=== PATIENT | female | born 1960 | race Caucasian/White ===

== ENCOUNTER 2021-03-25 10:13 | Outpatient (CLI) | payer OTHER, SELFPAY ==
--- NOTE | ~2021-03-25 | MM_ITS ---
EXAMINATION: MM screening colette BI w evan HISTORY: Screening TECHNIQUE: Craniocaudal and mediolateral oblique 3-D tomosynthesis images were obtained and synthetic 2-D images were generated. CAD analysis was submitted and interpreted. COMPARISON: No prior mammogram is available for comparison at this institution. BREAST PARENCHYMAL COMPOSITION: The breasts are heterogenously dense, which may obscure small masses FINDINGS: There is no evidence of suspicious mass, calcification, or architectural distortion to sugg est malignancy in either breast. There has been no suspicious interval change. IMPRESSION: 1. No mammographic evidence of malignancy. 2. Recommend routine screening mammography in one year. BI-RADS Category 1: Negative Reviewed, dictated and finalized at location B.
== END 2021-03-25 10:14 | disposition home or self-care (01) ==
LOC: ANHIMG 10:21
PROVIDERS: PCP Family Medicine; Visit Provider Family Medicine
DX: Z12.31 Encounter for screening mammogram for malignant neoplasm of breast (principal)
CPT/HCPCS: 77063; 77067

== ENCOUNTER 2021-10-07 01:32 | Day surgery (SDC) | payer OTHER, SELFPAY ==
[2021-09-21 14:09] VITALS: BMI 24.0
[2021-10-07 12:43] VITALS: BP 138/80; PULSE 59; RESP 19; TEMP 36.2; O2SAT 100
[2021-10-07] MEDS: LACTATED RINGERS 1,000 ML 150 ML IV CONT (12:56)
--- NOTE | 2021-10-07 13:03 | WPDANESEPPF ---
Anes - Initial Pre Proc Eval Procedure: Operation Date: 10/07/21 13:45 Proposed Procedures p Esophagogastroduodenoscopy & Colonoscopy - Marcos Ballard MD Date/Time: 10/07/21 13:03 Surgeon: Marcos Ballard MD Pre Op Diagnosis: Dysphagia, GERD, Rectal Bleed Patient Data Age: 61 Gender: F Height: 1.52 m Weight: 54.9 kg Last Vital Signs Temp 36.2 C L 10/07/21 12:43 Pulse 59 L 10/07/21 12:43 Resp 19 10/07/21 12:43 BP 138/80 10/07/21 12:43 Pulse Ox 100 10/07/21 12:43 Allergies Allergy/AdvReac Type Severity Reaction Status Date / Time codeine Allergy Mild Unknown Verified 10/07/21 12:42 iodine Allergy Mild Muscle Pain Verified 10/07/21 12:42 Vpkybww-SXP-HaN Reductase Allergy Mild Unknown Verified 10/07/21 12:42 Inhibitor [Jiiazmx-Wbk-Eea Reductase Inhibitor] Home Medications Medication Instructions Recorded Confirmed Type pantoprazole 40 mg tablet,delayed 40 mg PO QAM 07/27/20 09/21/21 History release calcium carbonate 200 mg calcium 200 mg PO .prn PRN tablet 08/18/21 09/21/21 History (500 mg) chewable tablet famotidine 20 mg tablet 20 mg PO DAILY 08/18/21 09/21/21 History multivitamin 1 tablet PO DAILY 08/18/21 09/21/21 History sertraline 25 mg PO DAILY 09/21/21 09/21/21 History Patient hx anesthesia problems: none Family hx anesthesia problems: none Results Review: All pre-operative results and documents have been reviewed as part of the pre-operative evaluation. [facility] Past Medical History Medical History (Updated 10/07/21 @ 13:04 by Gonzalez Clemente MD) Acid reflux Anxiety Encounter for screening colonoscopy History of gluten sensitivity Hyperlipemia Social History Social History Smoking status: Never smoker Alcohol intake: never Substance use type: does not use Living arrangements: with family Spiritual care concerns: No Anes - Eval Final PreProcedure Day of Procedure 10/07/21 13:03 Patient weight: normal Heart: regular rate and rhythm Lungs: clear to auscultation Airway: Mallampati scale class II Neurological: alert and oriented Last oral intake: >/= 8 hours ASA classification: II Emergent: no Anesthetic plan: proceed Anesthesia type and monitoring: general GIVS and standard monitoring Results Review: All pre-operative results and documents have been reviewed as part of the pre-operative evaluation. Informed Consent: The patient's anesthetic plan and its attendant risks and benefits were discussed with the patient/family/POA. Questions were solicited and answers provided to the satisfaction of the patient/family/POA.
--- NOTE | 2021-10-07 13:38 | PM.HPGS ---
History of Present Illness History of Present Illness Consent: Risks, benefits, and alternatives have been discussed and questions answered. Patient agrees to proceed with procedure. Chief complaint: Dysphagia, GERD, Rectal Bleed Narrative: Marlyn Sy is a 61 year old female with gerd on ppi for years, last egd early 2009, colonoscopy 2012 with polyp, lately with intermittent dysphagia. Review of Systems Constitutional: Constitutional: Denies headache(s) and Denies weakness Eyes: Eyes: Denies blurry vision ENT: Reports Normal hearing present, Denies headache(s) and Denies neck pain Cardiovascular: Cardiovascular: Denies chest pain and Denies dyspnea Respiratory: Respiratory: Denies dyspnea Gastrointestinal: Gastrointestinal: Reports no additional gastrointestinal complaints Genitourinary: Genitourinary: Denies dysuria Musculoskeletal: Musculoskeletal: Denies neck pain Integumentary/Breasts: Skin/Breast: Denies dry skin Neurologic: Reports Normal hearing present, Denies headache(s) and Denies weakness Psychiatric: Psychiatric: Denies anxiety Endocrine: Endocrine: Denies change in body appearance Hematologic/Lymphatic: Hematologic/Lymphatic: Denies easy bleeding Allergic/Immunologic: Allergic/Immunologic: Denies urticaria PMFSH Past Medical History Medical History (Updated 10/07/21 @ 13:38 by Marcos Ballard MD) Acid reflux Anxiety Encounter for screening colonoscopy History of gluten sensitivity Hyperlipemia Social History Social History Smoking status: Never smoker Alcohol intake: never Substance use type: does not use Living arrangements: with family Spiritual care concerns: No Meds Home Medications and Allergies Home Medications Medication Instructions Recorded Confirmed Type pantoprazole 40 mg tablet,delayed 40 mg PO QAM 07/27/20 09/21/21 History release calcium carbonate 200 mg calcium 200 mg PO .prn PRN tablet 08/18/21 09/21/21 History (500 mg) chewable tablet famotidine 20 mg tablet 20 mg PO DAILY 08/18/21 09/21/21 History multivitamin 1 tablet PO DAILY 08/18/21 09/21/21 History sertraline 25 mg PO DAILY 09/21/21 09/21/21 History Allergies Allergy/AdvReac Type Severity Reaction Status Date / Time codeine Allergy Mild Unknown Verified 10/07/21 12:42 iodine Allergy Mild Muscle Pain Verified 10/07/21 12:42 Mouksab-NKQ-XpU Reductase Allergy Mild Unknown Verified 10/07/21 12:42 Inhibitor [Vjyqhjy-Zhg-Pei Reductase Inhibitor] Vital Signs Vital Signs - 24 hr 10/07/21 12:43 Temperature 97.2 F L Pulse Rate 59 L Respiratory Rate 19 Blood Pressure 138/80 Pulse Oximetry 100 Exam Const: General: comfortable and no acute distress HENMT: General nose exam: Normal nares present Eyes: General: appearance normal, both eyes and all related structures Neck: Neck: no JVD Resp: Auscultation: clear to auscultation bilaterally Cardio: Rate: regular rate Rhythm: regular rhythm GI: Inspection: non-distended GI Palp: Yes Soft to palpation Skin: General skin exam: normal color Neuro: General: gait normal Speech: normal speech Extrem: General: normal to inspection Psych: Mental Status: mental status grossly normal Assessment and Plan Assessment and plan (1) Acid reflux: Code(s): K21.9 - Gastro-esophageal reflux disease without esophagitis Status: Acute Assessment and Plan: gerd with bx, on ppi (2) Encounter for screening colonoscopy: Code(s): Z12.11 - Encounter for screening for malignant neoplasm of colon Status: Acute Assessment and Plan: colonoscopy
--- NOTE | 2021-10-07 13:50 | SUR.OPER ---
EGD ended at 1344. Colonoscopy began at 1350.
[2021-10-07 14:02] VITALS: BP 106/67; PULSE 59; RESP 19; O2SAT 100
[2021-10-07 14:12] VITALS: BP 123/74; PULSE 56; RESP 15; O2SAT 95
[2021-10-07 14:22] VITALS: BP 138/79; PULSE 49; RESP 18; O2SAT 100
== END 2021-10-07 14:33 | disposition home or self-care (01) ==
PROVIDERS: PCP Family Medicine; Visit Provider Internal Medicine Gastroenterology
PROC: 0DJ08ZZ Inspection of Upper Intestinal Tract, Via Natural or Artificial Opening Endoscopic (ICD-10-PCS; CPT 43235; principal; 2021-10-07 13:45)
DX: K62.5 Hemorrhage of anus and rectum (principal); K57.30 Diverticulosis of large intestine without perforation or abscess without bleeding; K21.9 Gastro-esophageal reflux disease without esophagitis; K90.41 Non-celiac gluten sensitivity; K64.8 Other hemorrhoids; E78.5 Hyperlipidemia, unspecified; F41.9 Anxiety disorder, unspecified
CPT/HCPCS: 45378; 43239; 88305; J2704; J7120

== ENCOUNTER 2022-02-08 22:46 | Emergency (ER) | payer OTHER, SELFPAY ==
[2022-02-08 22:50] VITALS: BP 148/99; PULSE 60; RESP 16; TEMP 36.6; O2SAT 100
[2022-02-09] MEDS: CEPHALEXIN 500 MG CAPSULE PO (00:17)
[2022-02-09] MEDS: FAMOTIDINE 20 MG TABLET 40 MG PO (00:17)
--- NOTE | 2022-02-09 00:28 | ED.WOUNDLAC ---
HPI - Wound/Laceration General Chief Complaint: Wound/Laceration Stated Complaint: insect bite Time Seen by Provider: 02/08/22 23:48 History of Present Illness HPI narrative: This is a 61-year-old female with past medical history of GERD, who presents to the emergency department complaining of pain and swelling of the right thumb and wrist after being stung by a wasp yesterday. Patient states he was working in the garden when she was stung by a wasp, she had additional swelling, managed with home Benadryl with initial improvement then worsening. She states her pain was approximately 4 out of 10, to the right thumb and right wrist. She also complains of mild tenderness of the right bicep. She states she took increased dose of Benadryl today with some resulting tiredness. Related Data Home Medications Medication Instructions Recorded Confirmed pantoprazole 40 mg tablet,delayed 40 mg PO QAM 07/27/20 09/21/21 release calcium carbonate 200 mg calcium 200 mg PO .prn PRN Acid Reflux 08/18/21 09/21/21 (500 mg) chewable tablet (Tums) famotidine 20 mg tablet 20 mg PO DAILY 08/18/21 09/21/21 multivitamin (Daily Multi-Vitamin 1 tablet PO DAILY 08/18/21 09/21/21 tablet) sertraline 25 mg tablet 25 mg PO DAILY 09/21/21 09/21/21 Allergies Allergy/AdvReac Type Severity Reaction Status Date / Time codeine Allergy Mild Unknown Verified 10/07/21 12:42 iodine Allergy Mild Muscle Pain Verified 10/07/21 12:42 Xhxvtsm-WVS-JuY Reductase Allergy Mild Unknown Verified 10/07/21 12:42 Inhibitor [Gyuisef-Elm-Abt Reductase Inhibitor] Review of Systems Review of Systems: CONSTITUTIONAL: Denies fever, chills, or sweats. EYES: Denies visual changes, redness, or discharge. ENT: Denies rhinorrhea, congestion, sore throat, or otalgia. CARDIOVASCULAR: Denies chest pain, palpitations, or edema. RESPIRATORY: Denies cough or dyspnea. GASTROINTESTINAL: Denies abdominal pain, nausea, vomiting, or diarrhea. GENITOURINARY: Denies dysuria or hematuria. SKIN: Rash and swelling of the right thumb and wrist MUSCULOSKELETAL: Right arm tenderness denies back pain, joint pain, or myalgia. NEUROLOGIC: Denies headache, numbness, dizziness, or weakness. PSYCHIATRIC: Denies anxiety or depression. [facility] Past Medical History Medical History (Updated 02/09/22 @ 00:33 by Jaguar Morales MD) Acid reflux Anxiety Encounter for screening colonoscopy History of gluten sensitivity Hyperlipemia Social History Social History Smoking status: Never smoker Alcohol intake: never Substance use type: does not use Spiritual care concerns: No Exam Narrative: GENERAL: Well-appearing, well-nourished, and in no acute distress. HEAD: Normocephalic, atraumatic. EYES: PERRLA and EOMI. ENT: Nares clear, no rhinorrhea or epistaxis. Mucous membranes moist. Oropharynx without tonsillar hypertrophy exudate or other lesions. NECK: Supple. No adenopathy or masses. No carotid bruits or JVD. No stridor CHEST: Clear to auscultation. No respiratory distress. No wheezes rales or rhonchi HEART: Regular rate and rhythm. No murmur heard. Normal peripheral pulses. ABDOMEN: Soft, nontender, nondistended, normal active bowel sounds. EXTREMITIES: Mild swelling and erythema noted of the palmar aspect of the right thumb and anterolateral aspect of the right wrist. Range of motion of the fingers and the wrist is intact without significant tenderness, normal range of motion. No noted lymphadenopathy, no other edema. SKIN: Warm, dry, no rash. NEURO: No focal deficits. Alert and oriented x3. Strength 5/5 in all extremities, sensation intact in all extremities PSYCH: Normal mood and affect. Course Course Emergency Course: :22 - Patient given oral Pepcid and initial dose of antibiotics. After observation in the emergency department there is no additional noted swelling or spreading erythema and the patient fe
[2022-02-09] MEDS: ACETAMINOPHEN 500 MG TABLET 1000 MG PO (00:40)
[2022-02-09 01:26] VITALS: BP 147/88; PULSE 61; RESP 16; O2SAT 100
== END 2022-02-09 01:27 | disposition home or self-care (01) ==
PROVIDERS: Emergency Provider Preventive Medicine Aerospace Medicine; PCP Family Medicine
DX: T63.461A Toxic effect of venom of wasps, accidental (unintentional), initial encounter (principal); L03.011 Cellulitis of right finger; L03.113 Cellulitis of right upper limb; E78.5 Hyperlipidemia, unspecified; K21.9 Gastro-esophageal reflux disease without esophagitis; F41.9 Anxiety disorder, unspecified; K90.41 Non-celiac gluten sensitivity
CPT/HCPCS: 90471; 99283; A9270

== ENCOUNTER 2022-08-15 01:16 | Day surgery (SDC) | payer OTHER, SELFPAY ==
[2022-08-07 11:30] VITALS: BMI 22.2
[2022-08-15 09:58] VITALS: BP 120/56; PULSE 63; RESP 16; TEMP 36.5; O2SAT 100; BMI 21.9
[2022-08-15] MEDS: LACTATED RINGERS 1,000 ML 150 ML IV CONT (10:08)
--- NOTE | 2022-08-15 10:17 | WPDANESEPPF ---
Anes - Initial Pre Proc Eval Procedure: Operation Date: 08/15/22 11:15 Proposed Procedures p Esophagogastroduodenoscopy - Marcos Ballard MD Date/Time: 08/15/22 10:17 Surgeon: Marcos Ballard MD Pre Op Diagnosis: GERD Patient Data Age: 61 Gender: F Height: 1.6 m Weight: 56.1 kg Last Vital Signs Temp 97.7 F 08/15/22 09:58 Pulse 63 08/15/22 09:58 Resp 16 08/15/22 09:58 BP 120/56 L 08/15/22 09:58 Pulse Ox 100 08/15/22 09:58 O2 Del Method Room Air 08/15/22 09:58 Allergies Allergy/AdvReac Type Severity Reaction Status Date / Time codeine Allergy Mild Unknown Verified 08/15/22 09:57 iodine Allergy Mild Muscle Pain Verified 08/15/22 09:57 Zlypydj-MMY-JzM Reductase Allergy Mild Unknown Verified 08/15/22 09:57 Inhibitor [Xybdkqg-Suj-Jsi Reductase Inhibitor] Home Medications Medication Instructions Recorded Confirmed Type pantoprazole 40 mg tablet,delayed 40 mg PO QAM 07/27/20 08/15/22 History release calcium carbonate 200 mg calcium 200 mg PO .prn PRN Acid Reflux 08/18/21 08/15/22 History (500 mg) chewable tablet (Tums) multivitamin (Daily Multi-Vitamin 1 tablet PO DAILY 08/18/21 08/15/22 History tablet) sertraline 25 mg tablet 25 mg PO DAILY 09/21/21 08/15/22 History sertraline 25 mg tablet 37.5 mg PO DAILY 05/02/22 08/15/22 History metronidazole 500 mg tablet 500 mg PO Q12H #14 tabs 05/04/22 08/15/22 Rx estradiol 10 mcg vaginal tablet 10 mcg vaginal 2XW #30 tabs 06/06/22 08/15/22 Rx (Vagifem) Patient hx anesthesia problems: none Family hx anesthesia problems: none Results Review: All pre-operative results and documents have been reviewed as part of the pre-operative evaluation. [facility] Past Medical History Medical History Acid reflux Anxiety Encounter for screening colonoscopy History of gluten sensitivity Hyperlipemia Vaginitis Surgical History Surgical History History of spinal surgery History of tonsillectomy Family History Family History Mother Hypertension Cerebrovascular accident Crohn's disease Father Hypertension Franklin's esophagus Leukemia Social History Social History Smoking status: Never smoker Alcohol intake: current Alcohol use details: wine with dinner Substance use: never Substance use type: does not use Living arrangements: with family Occupation/Education: retired Gender identity (if verbalized by the patient): Female Sexual Orientation (if Verbalized by the Patient): Straight or Heterosexual Spiritual care concerns: No Anes - Eval Final PreProcedure Day of Procedure 08/15/22 10:17 Patient weight: normal Heart: regular rate and rhythm Lungs: clear to auscultation Airway: Mallampati scale class II Neurological: alert and oriented Last oral intake: >/= 8 hours ASA classification: II Emergent: no Anesthetic plan: proceed Anesthesia type and monitoring: general GIVS and standard monitoring Results Review: All pre-operative results and documents have been reviewed as part of the pre-operative evaluation. Informed Consent: The patient's anesthetic plan and its attendant risks and benefits were discussed with the patient/family/POA. Questions were solicited and answers provided to the satisfaction of the patient/family/POA.
--- NOTE | 2022-08-15 11:04 | PM.HPGS ---
History of Present Illness History of Present Illness Consent: Risks, benefits, and alternatives have been discussed and questions answered. Patient agrees to proceed with procedure. Chief complaint: GERD Narrative: Marlyn Sy is a 61 year old female with more gerd symptoms now on protonix, had egd last year that was unremarkable Review of Systems Constitutional: Constitutional: Denies headache(s) and Denies weakness Eyes: Eyes: Denies blurry vision ENT: Reports Normal hearing present, Denies headache(s) and Denies neck pain Cardiovascular: Cardiovascular: Denies chest pain and Denies dyspnea Respiratory: Respiratory: Denies dyspnea Gastrointestinal: Gastrointestinal: Reports no additional gastrointestinal complaints Genitourinary: Genitourinary: Denies dysuria Musculoskeletal: Musculoskeletal: Denies neck pain Integumentary/Breasts: Skin/Breast: Denies dry skin Neurologic: Reports Normal hearing present, Denies headache(s) and Denies weakness Psychiatric: Psychiatric: Denies anxiety Endocrine: Endocrine: Denies change in body appearance Hematologic/Lymphatic: Hematologic/Lymphatic: Denies easy bleeding Allergic/Immunologic: Allergic/Immunologic: Denies urticaria PMFSH Past Medical History Medical History Acid reflux Anxiety Encounter for screening colonoscopy History of gluten sensitivity Hyperlipemia Vaginitis Surgical History Surgical History History of spinal surgery History of tonsillectomy Family History Family History Mother Hypertension Cerebrovascular accident Crohn's disease Father Hypertension Franklin's esophagus Leukemia Social History Social History Smoking status: Never smoker Alcohol intake: current Alcohol use details: wine with dinner Substance use: never Substance use type: does not use Living arrangements: with family Occupation/Education: retired Gender identity (if verbalized by the patient): Female Sexual Orientation (if Verbalized by the Patient): Straight or Heterosexual Spiritual care concerns: No Meds Home Medications and Allergies Home Medications Medication Instructions Recorded Confirmed Type pantoprazole 40 mg tablet,delayed 40 mg PO QAM 07/27/20 08/15/22 History release calcium carbonate 200 mg calcium 200 mg PO .prn PRN Acid Reflux 08/18/21 08/15/22 History (500 mg) chewable tablet (Tums) multivitamin (Daily Multi-Vitamin 1 tablet PO DAILY 08/18/21 08/15/22 History tablet) sertraline 25 mg tablet 25 mg PO DAILY 09/21/21 08/15/22 History sertraline 25 mg tablet 37.5 mg PO DAILY 05/02/22 08/15/22 History metronidazole 500 mg tablet 500 mg PO Q12H #14 tabs 05/04/22 08/15/22 Rx estradiol 10 mcg vaginal tablet 10 mcg vaginal 2XW #30 tabs 06/06/22 08/15/22 Rx (Vagifem) Allergies Allergy/AdvReac Type Severity Reaction Status Date / Time codeine Allergy Mild Unknown Verified 08/15/22 09:57 iodine Allergy Mild Muscle Pain Verified 08/15/22 09:57 Dbvpeog-RNU-UtI Reductase Allergy Mild Unknown Verified 08/15/22 09:57 Inhibitor [Irmksbs-Fkd-Rnh Reductase Inhibitor] Vital Signs Vital Signs - 24 hr 08/15/22 09:58 Temperature 97.7 F Pulse Rate 63 Respiratory Rate 16 Blood Pressure 120/56 L Pulse Oximetry 100 Oxygen Delivery Room Air Exam Const: General: comfortable and no acute distress HENMT: Face/Nose/Sinus: Normal nares present Eyes: General: appearance normal, both eyes and all related structures Neck: Neck: no JVD Resp: Auscultation: clear to auscultation bilaterally Cardio: Rate: regular rate Rhythm: regular rhythm GI: Inspection: non-distended GI Palp: Yes Soft to palpation Skin: General skin exam: normal color Neuro: General: gait norm
[2022-08-15 11:14] VITALS: BP 96/49; PULSE 67; RESP 18; O2SAT 100
[2022-08-15 11:24] VITALS: BP 116/62; PULSE 58; RESP 19; O2SAT 100
[2022-08-15 11:34] VITALS: BP 131/68; PULSE 58; RESP 16; O2SAT 100
== END 2022-08-15 11:44 | disposition home or self-care (01) ==
PROVIDERS: PCP Family Medicine; Visit Provider Internal Medicine Gastroenterology
PROC: 0DJ08ZZ Inspection of Upper Intestinal Tract, Via Natural or Artificial Opening Endoscopic (ICD-10-PCS; CPT 43235; principal; 2022-08-15 11:15)
DX: K21.9 Gastro-esophageal reflux disease without esophagitis (principal); K90.41 Non-celiac gluten sensitivity; E78.5 Hyperlipidemia, unspecified; F41.9 Anxiety disorder, unspecified
CPT/HCPCS: 43239; 88305; J2704; J7120

== ENCOUNTER 2022-09-19 14:57 | Outpatient (CLI) | payer OTHER, SELFPAY ==
--- NOTE | ~2022-09-19 | MM_ITS ---
EXAMINATION: MM screening colette BI w evan HISTORY: Screening mammogram TECHNIQUE: Craniocaudal and mediolateral oblique 3-D tomosynthesis images were obtained and synthetic 2-D images were generated. CAD analysis was submitted and interpreted. COMPARISON: 03/25/2021 BREAST PARENCHYMAL COMPOSITION: The breasts are heterogeneously dense, which may obscure small masses . FINDINGS: No suspicious mass, calcification, or architectural distortion are identified in either jenaro ast to suggest malignancy. There has been no suspicious interval change. IMPRESSION: 1. No mammographic evidence of malignancy. 2. Recommend routine screening mammography in one year. BI-RADS Category 1: Negative Reviewed, dictated and finalized at location A.
== END 2022-09-19 14:58 | disposition home or self-care (01) ==
PROVIDERS: PCP Family Medicine; Visit Provider Family Medicine
DX: Z12.31 Encounter for screening mammogram for malignant neoplasm of breast (principal)
CPT/HCPCS: 77063; 77067

== ENCOUNTER 2023-11-26 10:00 | Outpatient (CLI) | payer OTHER, SELFPAY ==
--- NOTE | ~2023-11-26 | MM_ITS ---
EXAMINATION: MM screening colette BI w evan HISTORY: Screening mammogram TECHNIQUE: Craniocaudal and mediolateral oblique 3-D tomosynthesis images were obtained and synthetic 2-D images were generated. CAD analysis was submitted and interpreted. COMPARISON: 09/19/2022 and 03/25/2021 BREAST PARENCHYMAL COMPOSITION:Dense: The breasts are heterogeneously dense, which may obscure small masses. FINDINGS: Questionable more conspicuous focal architectural distortion in the slightly outer left jenaro ast on CC view. No suspicious mass or calcification are identified in either breast to suggest malign soraya. IMPRESSION: Possible more conspicuous focal architectural distortion at the left breast on CC view, as detailed a adonis. Spot compression view, and possibly ultrasound, recommended for further evaluation at this time . BI-RADS Category 0: Incomplete: Needs additional imaging evaluation. Reviewed, dictated and finalized at [facility]. IMPRESSION: Possible more conspicuous focal architectural distortion at the left breast on CC view, as detailed above. Spot compression view, and possibly ultrasound, rec ommended for further evaluation at this time. BI-RADS Category 0: Incomplete: Needs additional imaging evaluation.
== END 2023-11-26 10:01 | disposition home or self-care (01) ==
LOC: ANHIMG 10:02
PROVIDERS: PCP Internal Medicine; Visit Provider Student in an Organized Health Care Education/Training Program
DX: Z12.31 Encounter for screening mammogram for malignant neoplasm of breast (principal); R92.8 Other abnormal and inconclusive findings on diagnostic imaging of breast
CPT/HCPCS: 77063; 77067

== ENCOUNTER 2023-12-17 11:02 | Outpatient (CLI) | payer OTHER, SELFPAY ==
--- NOTE | ~2023-12-17 | MMUS_ITS ---
EXAMINATION: MM diagnostic colette LT w evan, US breast LT complete HISTORY: Possible architectural distortion of the left breast TECHNIQUE: Additional 3-D tomosynthesis images of the left breast were performed and synthetic 2-D im ages were generated. CAD analysis was submitted and interpreted. High resolution complete left breast ultrasound was performed. COMPARISON: Comparison to multiple prior studies sequentially, with oldest reviewed study dated 03/05. BREAST PARENCHYMAL COMPOSITION: Dense: The breasts are heterogeneously dense, which may obscure small masses FINDINGS: MAMMOGRAPHIC FINDINGS: The asymmetry/architectural distortion is less apparent with spot compression views, likely superimpo sed fibroglandular content. No discrete mass or suspicious calcifications. ULTRASOUND: Complete US of all 4 quadrants of the left breast and retroareolar region was reviewed. Normal hetero geneous echotexture without focal solid or cystic mass. IMPRESSION: 1. No evidence for malignancy in the left breast. 2. Routine yearly screening mammogram and regular clinical breast examination are recommended. BI-RADS Category 1: Negative Reviewed, dictated and finalized at location B. IMPRESSION: 1. No evidence for malignancy in the left breast. 2. Routine yearly screening mammogram and regular clinical breast examination a re recommended. BI-RADS Category 1: Negative
== END 2023-12-17 11:03 | disposition home or self-care (01) ==
LOC: ANHIMG 11:06
PROVIDERS: PCP Internal Medicine; Visit Provider Student in an Organized Health Care Education/Training Program
DX: R92.8 Other abnormal and inconclusive findings on diagnostic imaging of breast (principal)
CPT/HCPCS: 76641; 77061; 77065; G0279

== ENCOUNTER 2024-03-24 09:02 | Outpatient (CLI) | payer OTHER, SELFPAY ==
[2024-03-24 16:40] LABS: Basophils Percent Auto 0.6 % (0.2-1.2); Eosinophils Absolute Auto 0.1 K/mm3 (0-0.3); Hematocrit 42.9 % (37.0-47.0); Immature Granulocyte Absolute 0.01 K/mm3 (0.00-0.031); Immature Granulocyte Percent A 0.2 % (0-0.5); Lymphocytes Absolute Auto 2.53 K/mm3 (0.9-3.2); Lymphocytes Percent Auto 50.9 % (18.3-44.2); Mean Corpuscular HGB Conc 32.6 g/dl (32-36); Mean Corpuscular Hemoglobin 31.7 pg (26-34); Mean Corpuscular Volume 97.3 fl (80-100); Mean Platelet Volume 11.3 fl (7.4-10.4); Monocytes Absolute Auto 0.6 K/mm3 (0.1-0.6); Monocytes Percent Auto 11.5 % (2.6-8.5); Neutrophils Absolute Auto 1.7 K/mm3 (1.3-6.7); Neutrophils Percent Auto 34.8 % (45.5-73.1); Platelet Count Result 180 k/mm3 (150-375); Red Blood Count 4.41 M/mm3 (4.2-5.4); Red Cell Distribution Width 12.5 % (11.5-14.5)
[2024-03-24 17:03] LABS: Alanine Aminotransferase 51 U/L (6-35); Albumin Level 4.2 g/dL (3.5-5.1); Alkaline Phosphatase 73 U/L (38-126); Anion Gap 6 mmol/L (4-12); Aspartate Amino Transferase 71 U/L (14-36); Bilirubin,Total 0.5 mg/dL (0.2-1.3); Blood Urea Nitrogen 17 mg/dL (7-17); Calcium 9.3 mg/dL (8.4-10.2); Carbon Dioxide 30 mmol/L (22-30); Chloride 99 mmol/L (98-107); Cholesterol 252 mg/dL (0-200); Estimated Glomerular Filt Rate > 60; Glucose 73 mg/dL (65-110); HDL Direct 81 mg/dL; Potassium 4.1 mmol/L (3.4-5.0); Sodium 135 mmol/L (137-145); Triglycerides 81 mg/dL (<150)
[2024-03-24 17:14] LABS: LDL Cholesterol Direct 136 mg/dL
[2024-03-31 16:04] LABS: Apolipoprotein B 109 mg/dL
== END 2024-03-24 09:03 | disposition home or self-care (01) ==
LOC: ANHGOSHLAB 09:03
PROVIDERS: PCP Internal Medicine; Visit Provider Nurse Practitioner
DX: E78.5 Hyperlipidemia, unspecified (principal); E55.9 Vitamin D deficiency, unspecified; Z13.29 Encounter for screening for other suspected endocrine disorder
CPT/HCPCS: 36415; 80053; 80061; 82172; 82306; 85025

== ENCOUNTER 2025-03-27 09:15 | Outpatient (CLI) | payer OTHER, SELFPAY ==
--- OUTSIDE RECORDS SUMMARY | 2025-03-25 08:07 | XMS_ITS | Encounter Summary ---
Author Organization [facility] Address [address] [place] [address] Care Team Providers Care Strike Off Machine Operator Name Role Phone Estrada Escobedo NP Primary Care Provider [phone] Reason for Referral * Imaging (Routine) - Closed Specialty Diagnoses / Procedures Referred By Siddharthaac t Referred To Contact RADIOLOGY Diagnoses Encounter for screening for cardiovascular disorders Procedures CT HEART SCREEN CALCIUM SCORE PROMO Estrada Escobedo NP [address] [facility] [place] [address] Phone: tel: fax: Referral ID Status Reason Start Date Expiration Date Visits Re quested Visits Authorized [id number] Closed 03/20/2025 03/20/2026 1 1 Reason for Visit * Imaging (Routine) - Closed Specialty Diagnoses / Procedures Referred By Judy rojo Referred To Contact RADIOLOGY Diagnoses Encounter for screening for cardiovascular disorders Procedures CT HEART SCREEN CALCIUM SCORE PROMO Estrada Escobedo NP [facility] [place] [address] Phone: tel: fax: Referral ID Status Reason Start Date Expiration Date Visits Re quested Visits Authorized [id number] Closed 03/20/2025 03/20/2026 1 1 Encounter Details Date Type Department Care Team (Late st Contact Info) Description 03/25/2025 8:07 AM CDT - 03/25/2025 11:59 PM CDT Hospital Encounter [facility] [address] [place] [address] Estrada Escobedo NP [address] [facility] [address] [place] [address] Arrived Discharge Disposition: Home or Self Care (Routine Discharge) Social History Tobacco Use Types Packs/Day Years Used Date Smoking Tobacco: Never Assessed Comments Unknown Sex and Gender Information Value Date Recorded Sex Assigned at Female 03/20/2025 3:57 PM CDT Legal Sex Unknown 03/20/2025 1:06 PM CDT Gender Identity Not on file Sexual Orientation Not on file documented as of this encounter Plan of Treatment Not on file documented as of this encounter Procedures Procedure Name Priority Date/Time Associated Diagnosis Comments CT HEART SCREEN CALCIUM SCORE PROMO Routine 03/25/2025 8:32 AM CDT Encounter for screening for cardiovascular disorders documented in this encounter Results * CT HEART SCREEN CALCIUM SCORE PROMO (03/25/2025 8:32 AM CDT) Anatomical Region Laterality Modality Chest Computed Tomogra phy 03/25/2025 9:06 AM CDT Impressions 03/25/2025 9:06 AM CDT =====IMPRESSION:===== Total Score: 0 No plaque, very low risk, very unlikely for probability of significant CAD Ordered By: ESTRADA ESCOBEDO Interpreted By: Mario Brand MD, 03/25/2025 9:06 AM Narrative 03/25/2025 9:06 AM CDT [address] [address] EXAMINATION: Multislice Helical CT Coronary Calcium Scoring REASON FOR EXAM: Screening for heart disease COMPARISON: None TECHNIQUE: Multislice helical CT images of the proximal coronary arteries with a computer generated calcification score. A dose lowering technique was used for this procedure, which may include, but is not limited to, dose reduction technique, automated exposure control, iterative reconstruction, ALARA (As Low As Reasonably Achievable), or Image Gently techniques. Results: Left main: 0 LAD: 0 Circumflex: 0 Right coronary: 0 Total Score: 0 Comments: There is no mediastinal adenopathy, and there are no pulmonary nodules in the visualized portions of the chest. Calcium score guidelines: Total Score* Calcium Plaque [place] *Risk *Probability of significant CAD 0 No Plaque Very Low Very unlikely 1-10 Minimal Plaque Low Unlikely 11-100 Mild Plaque Moderate Low likelihood of significant stenosis <50% 101-400 Moderate Plaque Moderately High Moderate likelihood of significant stenosis (>50%) Over 400 Extensive Plaque High High likelihood of significant stenosis (>50%) The amount of coronary artery calcification correlates with the severity of coronary atherosclerosis and the probability of future significant event. Calcification is not site specific for stenosis and does not identify non-calcified atherosclerotic plaque, but rather indicates the extent of atherosclerosis in the coronary arteries overall. The score may be used as an indicator for risk factor modification or additional cardiac testing. Significant change in calcium score over time may be indicative of subsequent disease development or useful as a benchmark to assess preventative programs. Procedure Note Mario Brand MD - 03/25/2025 [address] [place] [address] EXAMINATION: Multislice Helical CT Coronary Calcium Scoring REASON FOR EXAM: Screening for heart disease COMPARISON: None TECHNIQUE: Multislice helical CT images of the proximal coronary arterieswith a computer generated calcification score. A dose lowering techniquewas used for this procedure, which may include, but is not limited to,dose reduction technique, automated exposure control, iterativereconstruction, ALARA (As Low As Reasonably Achievable), or Image Gentlytechniques. Results: Left main: 0 LAD: 0 Circumflex: 0 Right coronary: 0 Total Score: 0 Comments: There is no mediastinal adenopathy, and there are no pulmonarynodules in the visualized portions of the chest. Calcium score guidelines: Total Score* Calcium Plaque [place] *Risk *Probability ofsignificant CAD 0 No Plaque Very LowVery unlikely 1-10 Minimal Plaque LowUnlikely 11-100 Mild Plaque ModerateLow likelihood of significant stenosis <50% 101-400 Moderate Plaque Moderately HighModerate likelihood of significant stenosis (>50%) Over 400 Extensive Plaque HighHigh likelihood of significant stenosis (>50%) The amount of coronary artery calcification correlates with the severityof coronary atherosclerosis and the probability of future significantevent. Calcification is not site specific for stenosis and does notidentify non-calcified atherosclerotic plaque, but rather indicates theextent of atherosclerosis in the coronary arteries overall. The score may be used as an indicator for risk factor modification oradditional cardiac testing. Significant change in calcium score over timemay be indicative of subsequent disease development or useful as abenchmark to assess preventative programs. =====IMPRESSION:===== Total Score: 0 No plaque, very low risk, very unlikely for probability ofsignificant CAD Ordered By: ESTRADA ESCOBEDO Interpreted By: Mario Brand MD, 03/25/2025 9:06 AM Estrada Escobedo NP CT Final Result documented in this encounter Visit Diagnoses Diagnosis Encounter for screening for cardiovascular disorders Screening for other and unspecified cardiovascular conditions documented in this encounter Care Teams Strike Off Machine Operator Relationship Specialty Start Date End Date Estrada Escobedo NP [address] [facility] [address] [place] [address] PCP - General NURSE PRACTITIONER 03/20/25 documented as of this encounter
--- OUTSIDE RECORDS SUMMARY | 2025-03-27 09:29 | XMS_ITS | Clinical Summary ---
Author Organization [facility] [address] Address [address] [place] [address] Care Team Providers Care Writing Center Director Name Role Phone Yareli Brumfield MD Primary Care Provider [phone] Allergies Active Allergy Reactions Criticality Noted Date Comments Codeine Dizziness,Vomiting Low 05/23/2021 Iodine Other (See comments) Low 05/23/2021 Sqbdqwx-Onr-Taz Reductase Inhibitors Other (See comments) Low 05/23/2021 Muscle weakness and insomnia Medications pantoprazole DR (PROTONIX) 40 mg EC tablet Take 40 mg by mouth daily 05/21/2021 Active Active Problems Problem Noted Date Diagnosed Date Dietary counseling 05/28/2021 Exercise counseling 05/28/2021 Surgical History Surgery Date Site/Laterality Comments SPINAL FUSION TONSILLECTOMY Medical History Medical History Date Comments Hyperlipidemia Sinusitis Anxiety and depression Family History Medical History Relation Name Comments Heart attack Brother 1 Heart disease Brother 1 Relation Name Status Comments Brother 1 Alive Brother 2 Alive Brother 3 Alive Brother 4 Alive Father (Age 87) Mother (Age 83) Sister 1 Alive Sister 2 Alive Sister 3 Alive Social History Tobacco Use Types Packs/Day Years Used Date Smoking Tobacco: Never Smokeless Tobacco: Never Personal Safety Answer Date Recorded Getting School Help Needed Not on file 08/18 Comments Unknown Sex and Gender Information Value Date Recorded Sex Assigned at Not on file Legal Sex Female 8:53 AM COMMUNITY LIAISON Gender Identity Not on file Sexual Orientation Not on file Obstetrics History Last Filed Vital Signs Vital Sign Reading Time Taken Comments Blood Pressure 116/58 05/23/2021 12:45 PM COMMUNITY LIAISON Pulse 60 05/23/2021 12:45 PM COMMUNITY LIAISON Temperature - - Respiratory Rate - - Oxygen Saturation 97% 05/23/2021 12:45 PM COMMUNITY LIAISON Inhaled Oxygen Concentration - - Weight 57.2 kg (126 lb 1.6 oz) 05/23/2021 12:45 PM COMMUNITY LIAISON Height 161.3 cm (5' 3.5) 05/23/2021 12:45 PM CS T Body Mass Index 21.99 05/23/2021 12:45 PM COMMUNITY LIAISON Plan of Treatment Not on file Insurance [employer] PPO [facility] HMO/PPO Address: [facility] [address] [place] [address] Care Teams Writing Center Director Relationship Specialty Start Date End Date Yareli Brumfield MD [address] [place] [address] [place] [address] PCP - General Family Medicine 05/02/21
--- OUTSIDE RECORDS SUMMARY | 2025-03-27 09:29 | XMS_ITS | Clinical Summary ---
Author Organization [facility] Address [address] [place] [address] Care Team Providers Care Ragman Name Role Phone Estrada Escobedo NP Primary Care Provider [phone] Encounters Date Type Department Care Team Description 03/25/2025 8:07 AM CDT - 03/25/2025 11:59 PM CDT Hospital Encounter [facility] [address] [place] [address] Estrada Escobedo NP Arrived Discharge Disposition: Home or Self Care (Routine Discharge) 03/25/2025 Travel from Last 3 Months Social History Tobacco Use Types Packs/Day Years Used Date Smoking Tobacco: Never Assessed Comments Unknown Sex and Gender Information Value Date Recorded Sex Assigned at Female 03/20/2025 3:57 PM CDT Legal Sex Unknown 03/20/2025 1:06 PM CDT Gender Identity Not on file Sexual Orientation Not on file Plan of Treatment Health Maintenance Due Date Last Done Comments Cervical Cancer Screening Pap Smear (Age 30 to 64) Every 3 Years 1960 Colorectal Cancer Screening Colonoscopy (10 Years) 1960 Annual Physical 10/01/1963 Hepatitis C 1978 DTaP, Tdap and Td Vaccines (1 - Tdap) 10/01/1979 03/16/2025 Cervical Cancer Screening Pap with HPV Testing (Age 30 to 64) Every 5 Years 1990 Cervical Cancer Screening with HPV 1990 Mammogram Screening 2000 Pneumococcal Vaccine: 50+ Years (1 of 1 - PCV) 2010 Zoster Vaccines (1 of 2) 2010 COVID-19 Vaccine (1 - season) 2025 02/11/2025, 03/21/2024, 03/21/2023, Additional history exists Influenza Adult (#1) 2025 02/11/2025, 03/21/2024, 03/02/2023, Additional history exists RSV Immunization or 60+ Years (1 - 1-dose 75+ series) 10/01/2035 03/31/2023 Hepatitis A Vaccines Aged Out No long er eligible based on patient's age to complete this topic Meningococcal B Vaccine Aged Out No l onger eligible based on patient's age to complete this topic Meningococcal Vaccine Aged Out No laura dominique eligible based on patient's age to complete this topic RSV Immunizations Under 20 Months Aged Out No longer eligible based on patient's age to complete this topic Procedures Procedure Name Priority Date/Time Associated Diagnosis Comments CT HEART SCREEN CALCIUM SCORE PROMO Routine 03/25/2025 8:32 AM CDT Encounter for screening for cardiovascular disorders from Last 3 Months Results * CT HEART SCREEN CALCIUM SCORE PROMO (03/25/2025 8:32 AM CDT) Anatomical Region Laterality Modality Chest Computed Tomogra phy 03/25/2025 9:06 AM CDT Impressions 03/25/2025 9:06 AM CDT =====IMPRESSION:===== Total Score: 0 No plaque, very low risk, very unlikely for probability of significant CAD Ordered By: ESTRADA ESCOBEDO Interpreted By: Mario Brand MD, 03/25/2025 9:06 AM Narrative 03/25/2025 9:06 AM CDT [address] [address] EXAMINATION: Multislice Helical CT Coronary Calcium Scoring [...] Calcium score guidelines: Total Score* Calcium Plaque [place] *Risk *Probability of significant CAD 0 No [...] Procedure Note Mario Brand MD - 03/25/[address] [address] EXAMINATION: Multislice Helical CT Coronary Calcium Scoring [...] Calcium score guidelines: Total Score* Calcium Plaque [place] *Risk *Probability ofsignificant CAD 0 No Plaque [...] By: Mario Brand MD, 03/25/2025 9:06 AM us Estrada Escobedo NP CT Final Result from Last 3 Months Care Teams Ragman Relationship Specialty Start Date End Date Estrada Escobedo NP [address] [facility] [address] [place] [address] PCP - General NURSE PRACTITIONER 03/20/25
--- OUTSIDE RECORDS SUMMARY | 2025-03-27 09:29 | XMS_ITS | Data Portability ---
Author Organization [place] [facility], Main Office Address [address] [place] [address] Assessment No assessment recorded. Plan of Treatment Reminders Order Date Submit Date Provider Last Modified By Organization Details Last Modified Time Details Appointments None recorded . Lab lipid panel, serum 023 08/25/19 atolliver 11 [facility], [address], [place], [address], 3 09:38:26 CMP, serum or plasma 023 08/25/19 atolliver 11 [employer] [facility], [address], [place], [address], 3 09:38:26 Referral None recorded . Procedures None recorded . Surgeries None recorded . Imaging None recorded . Medication Orders None recorded . Patient TargetsNo targets recorded. Patient InstructionsNo instructions recorded. Reason for Referral None Reported. Results Created Date Observation Date Name Description Value Unit Range Abnormal Flag Note LastModifiedBy Organization Detail LastModifiedTime 12/14/1912/15/2021 BACTE RIAL VAGIN OSIS, CHRISTIANO atopobium vaginae modera te - 1 score Not Available [facility] (Lab) [address] [place], [address], 12/15/2021 06:10:07 12/14/19 22 12/15/2021 BACTE RIAL VAGIN OSIS, CHRISTIANO bvab 2 low - 0 score Not Available [facility] (Lab) [address] [place], [address], 12/15/2021 06:10:07 12/14/19 22 12/15/2021 BACTE RIAL VAGIN OSIS, CHRISTIANO megasphaera 1 low - 0 score . Calcu late total score by demetrice dale the 3 indiv idual bacte rial vagin osis (BV) marke r score s toget her. Total score is inter prete d as follo ws: Total score 0-1: Indic ates the absen ce of BV. Total score 2: Indet ermin ate for BV. Addit ional clini [place] data shoul d be evalu ated to estab troy a diagn osis. Total score 3-6: Indic ates the prese nce of BV. . This test was devel oped and its perfo rmanc e kimberly cteri stics deter mined by [facility]. It has not been clear ed or appro jeremy by the Food and Drug Admin istra tion. Perfo rmed at: =G - [facility] Shadia eston [address] , [place] [address] Lab Direc tor: Earle galvan MD, Phone : [phone] Not Available [facility] (Lab) [address] [place], [address], 12/15/2021 06:10:07 07/28/19 23 07/28/2022 H. pylor ieb rstic k H PYLORI neg Not Available [facility] [address] , [address], [place], [address], 07/28/2022 12:20:22 08/31/19 23 09/01/2022 LIPID PANEL (REFL ) cholesterol, total 223 mg/dL <200 high Not Available [facility] [address], [address], 09/01/2022 10:52:28 08/31/19 23 09/01/2022 LIPID PANEL (REFL ) HDL cholesterol 79 mg/dL > or = 50 normal Not Available [facility] [address] [place] [address], [address], 09/01/2022 10:52:28 08/31/19 23 09/01/2022 LIPID PANEL (REFL ) triglyceride s 71 mg/dL <150 normal Not Available [address], [address], 09/01/2022 10:52:28 08/31/19 23 09/01/2022 LIPID PANEL (REFL ) LDL-choleste rol 127 mg/dL _(d[place] c) high Refer ence range : <100 Gilberto able range <100 mg/dL for prima ry preve ntion ; <70 mg/dL for patie nts with CHD or diabe tic patie nts with > or = 2 CHD risk facto rs. LDL-C is now calcu lated using the Roselia n-Hop kins calcu man n, which is a valid ated novel metho d provi ding von r accur acy than the Fried morgan equat ion in the estim ation of LDL-C . Roselia tamayo SS et al. SAFIA. 2013; 310(1 9): 2061- 2068 (http ://ed ucati on.Qu estGetAFive. com/f aq/FA Q164) Not Available [address], [address], 09/01/2022 10:52:28 08/31/19 23 09/01/2022 LIPID PANEL (REFL ) chol/HDLC ratio 2.8 (calc ) <5.0 normal Not Available [address] [address] [place], [address], 09/01/2022 10:52:28 08/31/19 23 09/01/2022 LIPID PANEL (REFL ) non HDL cholesterol 144 mg/dL _(d[place] c) <130 high For patie nts with diabe angelo plus 1 major ASCVD risk facto r, treat ing to a non-H DL-C goal of <100 mg/dL (LDL- C of <70 mg/dL ) is consi dered a thera peuti c optio n. Not Available [facility] [address], [address], 09/01/2022 10:52:28 08/31/19 23 09/01/2022 SPECI MEN INTEG RITY COMPR OMISE D specimen integrity compromised Whole blood , unspu n or parti ally spun gel barri er tube was recei jeremy more than 6 hours since colle ction . A false eleva tion of K, Phos and LD as well as a false decre ase in gluco se may occur due to prolo nged conta ct with red cells . Not Available [facility] [address], [address], 09/01/2022 10:52:29 08/31/19 23 09/01/2022 COMPR EHENS GERTRUDE METAB OLIC PANEL (REFL ) glucose 83 mg/dL 65-99 normal Fasti ng refer ence inter mayur Not Available [facility] [address], [address], 09/01/2022 10:52:30 08/31/19 23 09/01/2022 COMPR EHENS GERTRUDE METAB OLIC PANEL (REFL ) urea nitrogen (BUN) 14 mg/dL 7-25 normal Not Available [facility] [address], [address], 09/01/2022 10:52:30 08/31/19 23 09/01/2022 COMPR EHENS GERTRUDE METAB OLIC PANEL (REFL ) creatinine 0.90 mg/dL 0.50-1 .05 normal Not Available [address], [address], 09/01/2022 10:52:30 08/31/19 23 09/01/2022 COMPR EHENS GERTRUDE METAB OLIC PANEL (REFL ) eGFR 73 mL/mi n/1.7 3m2 > or = 60 normal The eGFR is based on the CKD-E PI 2020 equat ion. To calcu late the new eGFR from a previ ous Creat inine or Cysta kassy C resul t, go to https ://kyleigh anglin.chani milian/zainab youngbloodess ional s/ kdoqi /gfr% 5Fcal culat or Not Available [address], [address], 09/01/2022 10:52:30 08/31/19 23 09/01/2022 COMPR EHENS GERTRUDE METAB OLIC PANEL (REFL ) BUN/creatini ne ratio NOT APPLIC ABLE (calc ) 6-22 Not Available [address], [address], 09/01/2022 10:52:30 08/31/19 23 09/01/2022 COMPR EHENS GERTRUDE METAB OLIC PANEL (REFL ) sodium 137 mmol/ L 135-14 6 normal Not Available [address], [address], 09/01/2022 10:52:30 08/31/19 23 09/01/2022 COMPR EHENS GERTRUDE METAB OLIC PANEL (REFL ) potassium 4.4 mmol/ L 3.5-5. 3 normal Not Available [address], [address], 09/01/2022 10:52:30 08/31/19 23 09/01/2022 COMPR EHENS GERTRUDE METAB OLIC PANEL (REFL ) chloride 102 mmol/ L 98-110 normal Not Available [address], [address], 09/01/2022 10:52:30 08/31/19 23 09/01/2022 COMPR EHENS GERTRUDE METAB OLIC PANEL (REFL ) carbon dioxide 29 mmol/ L 20-32 normal Not Available [address], [address], 09/01/2022 10:52:30 08/31/19 23 09/01/2022 COMPR EHENS GERTRUDE METAB OLIC PANEL (REFL ) calcium 9.1 mg/dL 8.6-10 .4 normal Not Available [address], [address], 09/01/2022 10:52:30 08/31/19 23 09/01/2022 COMPR EHENS GERTRUDE METAB OLIC PANEL (REFL ) protein, total 6.6 g/dL 6.1-8. 1 normal Not Available [address], [address], 09/01/2022 10:52:30 08/31/19 23 09/01/2022 COMPR EHENS GERTRUDE METAB OLIC PANEL (REFL ) albumin 4.1 g/dL 3.6-5. 1 normal Not Available [address], [address], 09/01/2022 10:52:30 08/31/19 23 09/01/2022 COMPR EHENS GERTRUDE METAB OLIC PANEL (REFL ) globulin 2.5 g/dL_ (calc ) 1.9-3. 7 normal Not Available [address], [address], 09/01/2022 10:52:30 08/31/19 23 09/01/2022 COMPR EHENS GERTRUDE METAB OLIC PANEL (REFL ) albumin/glob ulin ratio 1.6 (calc ) 1.0-2. 5 normal Not Available [address], [address], 09/01/2022 10:52:30 08/31/19 23 09/01/2022 COMPR EHENS GERTRUDE METAB OLIC PANEL (REFL ) bilirubin, total 0.6 mg/dL 0.2-1. 2 normal Not Available [address], [address], 09/01/2022 10:52:30 08/31/19 23 09/01/2022 COMPR EHENS GERTRUDE METAB OLIC PANEL (REFL ) alkaline phosphatase 71 U/L 37-153 normal Not Available [facility] [address], [place], [address], 09/01/2022 10:52:30 08/31/19 23 09/01/2022 COMPR EHENS GERTRUDE METAB OLIC PANEL (REFL ) AST 22 U/L 10-35 normal Not Available [facility] [address], [place], [address], 09/01/2022 10:52:30 08/31/19 23 09/01/2022 COMPR EHENS GERTRUDE METAB OLIC PANEL (REFL ) ALT 29 U/L 6-29 normal Not Available [facility] [address] , [place], [address], 09/01/2022 10:52:30 09/21/19 23 09/19/2022 MAMMO , scree sue, bilat eral No observ ation record ed. [address] [facility] [address], [place], [address], 09/20/2022 14:14:37 Result Notes None recorded. Problems Name Problem SNOMED Code Status Onset Date Resolution Date Notes Provider Name and Address Organization Details Recorded Time Gluten sensitivity 005228565 Active 2020 Not Available [facility] 3 22:24:08 Hyperlipidemi a 55577540 Active 2020 Not Available [facility] 3 22:24:08 Acid reflux 688791165 Active 2020 Not Available [facility] 3 22:24:08 Skin lesion 22359160 Active 2021 Not Available [facility] 3 22:24:08 Abdominal pain 27472589 Active 2022 Yareli Brumfield MD [address] [place] [address], [address] , [facility] [facility] 3 14:32:39 Problem Notes None recorded. Procedures Surgical History Date Name Laterality Status Provider Name and Address Organization Details Recorded Time Disc replacement surgery completed Not Available [facility] 08/02/2022 22:23:17 Imaging Results None recorded. Procedure Notes None recorded. Medical Equipment None Reported. Allergies Allergen ID Allergen Name Allergen Category Reaction Reaction Severity Criticality Documentation Date Start Date Code Code System Note Provider Name and Address Organization Details Recorded Time 48006 iodine medicatio n Not available Not available Not available 08/02/2022 5933 RxNorm topic al iodin e Not Available [facility] 3 22:24:51 75774 codeine medicatio n dizziness vomiting Not available Not available Not available 08/02/2022 2670 RxNorm Not Available [facility] 3 22:24:51 Medications Name Sig Start Date Stop Date Status Note LastModified by Organization Details LastModified Time fluconazole 150 mg tablet TAKE 1 TABLET BY MOUTH 1 TIME FOR 1 DOSE 07/28 completed Not Available Not Available Not Available famotidine 40 mg tablet TAKE 1 TABLET BY MOUTH DAILY active Not Available Not Available No t Available metronidazo le 500 mg tablet TAKE 1 TABLET BY MOUTH EVERY 12 HOURS 07/28 completed Not Available Not Available Not Available tramadol 50 mg tablet TAKE 1 TABLET BY MOUTH EVERY 8 HOURS NEEDED 09/13 completed Not Available Not Available Not Available cephalexin 500 mg capsule TAKE 1 CAPSULE BY MOUTH EVERY 6 HOURS 07/28 completed Not Available Not Available Not Available pantoprazol e 40 mg tablet,flora yed release TAKE 1 TABLET BY MOUTH EVERY DAY 2022 active Not Available Not Available Not Avai lable sertraline 25 mg tablet TAKE 1 AND 1/2 TABLETS BY MOUTH EVERY DAY IN THE MORNING active Not Available Not Available No t Available mupirocin 2 % topical ointment APPLY A SMALL AMOUNT TO THE AFFECTED AREA BY TOPICAL ROUTE 3 TIMES PER DAY active Not Available Not Available No t Available estradiol 0.01% (0.1 mg/gram) vaginal cream APPLY 1 GRAM VAGINALLY EVERY NIGHT AT BEDTIME 3 TIMES A WEEK 07/28 completed Not Available Not Available Not Available eszopiclone 1 mg tablet 06/24 completed Not Available Not Available Not Available Vagifem 10 mcg vaginal tablet INSERT 1 TABLET VAGINALLY TWICE A WEEK active Not Available Not Available No t Available Imvexxy Maintenance Pack 10 mcg vaginal insert 01/25 completed Not Available Not Available Not Available Vitals Date Recorded Body mass index (BMI) Body height Oxygen saturation Oxygen saturation in Arterial blood by Pulse oximetry Heart rate Body temperature Body weight Systolic And Diastolic Provider Name and Address Organization Details Last Updated DateTime 2 22 kg/m2 161.29 cm 99 % 99 % 56 /min 98.5 [degF] 44829.3 6 g 120/80 mm[Hg] Not Available [facility] 3 22:23:46 Date Recorded Body mass index (BMI) Body height Oxygen saturation Oxygen saturation in Arterial blood by Pulse oximetry Heart rate Body temperature Body weight Systolic And Diastolic Provider Name and Address Organization Details Last Updated DateTime 3 21.6 kg/m2 161.29 cm 94 % 94 % 65 /min 98.1 [degF] 40803.4 5 g 122/80 mm[Hg] Not Available [facility] 3 22:23:46 Date Recorded Body height Body mass index (BMI) Body weight Body temperature Heart rate Oxygen saturation Oxygen saturation in Arterial blood by Pulse oximetry Systolic And Diastolic Provider Name and Address Organization Details Last Updated DateTime 3 161.29 cm 21.8 kg/m2 61491.0 5 g 97 [degF] 66 /min 98 % 98 % 102/68 mm[Hg] NAZANIN Brooke [place] [facility] 3 14:18:47 Date Recorded Body mass index (BMI) Body height Oxygen saturation Oxygen saturation in Arterial blood by Pulse oximetry Heart rate Body temperature Body weight Systolic And Diastolic Provider Name and Address Organization Details Last Updated DateTime 2 21.6 kg/m2 161.29 cm 99 % 99 % 62 /min 99.5 [degF] 20956.4 5 g 112/80 mm[Hg] Not Available [facility] 3 22:23:46 Date Recorded Body mass index (BMI) Body height Oxygen saturation Oxygen saturation in Arterial blood by Pulse oximetry Heart rate Body temperature Body weight Systolic And Diastolic Provider Name and Address Organization Details Last Updated DateTime 2 21.1 kg/m2 161.29 cm 97 % 97 % 66 /min 98.9 [degF] 03697.6 8 g 124/74 mm[Hg] Not Available [facility] 3 22:23:46 Social History Question Answer Notes LastModified by [employer] Details LastModified Time Tobacco Smoking Status Never Smoker Madison fernandez [place] - [facility] 08/24/2022 14:13:33 In The 14 Days Before Symptom Onset, Have You Had Close Contact With A Laboratory-confirm ed COVID-19 While That Case Was Ill? No [email or web address] Information n ot available 08/24/2022 In The 14 Days Before Symptom Onset, Have You Had Close Contact With A Person Who Is Under Investigation For COVID-19 While That Person Was Ill? No [email or web address] Information not available 08/24/2022 What Type Of Diet Are You Following? GLUTENFREE [id number] Information not available 08/02/2022 Have You Recently Traveled Abroad? No Information not available 08/24/2022 Sex: Female Functional Status Question Answer Note LastModified by Organ[employer]at [employer] Details LastModified Time What is your exercise level? Moderate [id number] Information not available 08/02/2022 Mental Status None recorded. Family History Relationship Description Onset Age of this Age Resolved Age Notes LastModified by Organization Details LastModified Time Father Hypertensive disorder [id number] Not available 08/02/2022 22:23:19 Father Franklin's esophagus [email or web address] Not available 08/24 14:13:33 Father Leukemia [email or web address] Not availab le 08/24/2022 14:13:33 Mother Hypertensive disorder [id number] Not available 08/02/2022 22:23:19 Mother Heart disease [id number] Not available 08/02/2022 22:23:19 Mother Family history of stroke [email or web address] Not available 08/24 14:13:33 Mother Crohn's disease [email or web address] Not available 08/24 14:13:33 Medical History No medical history recorded. Gynecological HistoryNo gynecological history recorded. Obstetrics History GPAL:G 0 P 0 0 0 0 Immunizations Vaccine Type Date Status Note Provider Nam e and Address Organization Details Recorded Time Influenza, split virus, quadrivalent, preservative 0 completed Not Available [facility] 08/02/2022 22:24:49 Influenza, split virus, quadrivalent, PF 1 completed Not Available [facility] 08/02/2022 22:24:49 Past Encounters Encounter ID Performer Location Encounter Start Date Encounter Closed Date Diagnosis/Indication Diagnosis SNOMED-CT Code Diagnosis ICD10 Code Diagnosis IMO Codes Diagnosis Note [id number] Yareli Brumfield MD [facility] [place] [address] [place] [address] 01/25/2021 00:00:00 01/26/2021 05:31:29 [id number] Yareli Brumfield MD [facility] [place] [address] [place] [address] 02/24/2021 00:00:00 02/24/2021 20:48:57 [id number] Yareli Brumfield MD [facility] [place] [address] [place] [address] 04/27/2021 00:00:00 04/27/2021 19:46:24 [id number] Yareli Brumfield MD [facility] [place] [address] [place] [address] 07/26/2021 00:00:00 07/27/2021 06:19:37 [id number] Yareli Brumfield MD [facility] [place] [address] [place] [address] 09/13/2021 00:00:00 09/13/2021 19:14:39 [id number] Yareli Brumfield MD [facility] [place] [address] [place] [address] 12/12/2021 00:00:00 12/12/2021 20:35:14 [id number] Yareli Brumfield MD [facility] [place] [address] [place] [address] 07/28/2022 00:00:00 07/28/2022 14:21:24 [id number] Yareli Brumfield MD [facility] [address] [facility] [place] [address] 08/24/2022 14:05:29 08/24/2022 14:38:46 Abdominal pain 98850025 R10.9 Continue diet and use famotidine Hyperlipidemia 43763018 E78.5 Health Concerns Section Related Observation LastModified by Organization Detai ls LastModified Time None Recorded Concern Status LastModified by Organization Details LastModified Time None Recorded Advance Directives Directive None Recorded Payers Insurance Date Sequence Insurance Name Policy Number Policy Camacho Covered Member ID Camacho Member ID Guarantor Name 08/21/2022 1 [facility] Everywhere SERVICES - GE - DOS PRIOR TO 2024 (O) [id number] Patrice Sy [id number] Marlyn Sy Notes Date Note Type Note Provider Name and Address Organization Details Recorded Time 08/24/2022 text/html Here for f/u of GI issues is doing better. Is on famotidine. Doing ok with this. Had possibly diverticulitis. Had so much nausea. No known hx of diverticulitis. Had some found on colonoscopy awhile ago. Pt recently had EGD and was normal. Pt follows a Fad Mopp diet. Yareli Brumfield MD [facility] [address], [place], [address], [facility] 08/25/2022 06:29:01 OBGyn Episode No OBEpisode recorded.
--- OUTSIDE RECORDS SUMMARY | 2025-03-27 09:29 | XMS_ITS | Patient Health Record ---
Author Organization [facility] Address [address] [place] [address] Support Name Relationship Address Phone PATRICE VALDEZ Emergency Contact Unknown Unavail able JOSSELYN AVLDEZ Guarantor Unknown [phone] Reason For Referral No Information Medications Medication SIG (Take, Route, Frequency, Duration) Notes Start Date End Date Status Vagifem 10 mcg Tablet Vaginal 09/22/2022 Active Pantoprazole Sodium 40 MG Tablet Delayed Release Oral 09/22/2022 Activ e Immunizations Vaccine Route Administration Date Status Comme nts Pfizer Biontech Covid-19 Vac cine 2nd dose Unknown 08/30/2020 Administered Pfizer Biontech Covid-19 Vac cine 2nd dose Unknown 09/21/2020 Administered Pfizer Biontech Covid-19 Vac cine 2nd dose Unknown 05/13/2021 Administered Pfizer Biontech Covid-19 Vac cine 2nd dose Unknown 10/13/2021 Administered Social History Social History Additional Details Category Social Info Options Details Migrated Social History Migrated Social History Alcohol Intake: Moderate 10/03/2021,Tobacco Years: Never smoker 04/18/2021 Plan Of Treatment No Information Insurance Providers Payer Name Payer Address Payer Phone Subscriber Number Group Number Insured Name Patient Relationship to Insured Coverage Start Date Coverage End Date [facility] [address] [address] [place] [address] [id number] PATRICE VALDEZ Spouse - patient is the spouse of the insured Medical (General) History Surgical History Surgery Date(Month/Year) Tonsilectomy/adenoids 06/04/1968 Other 02/02/2009
[2025-03-27 13:03] LABS: Hematocrit 46.4 % (37.0-47.0); Hemoglobin 15.3 g/dL (12.0-15.0); Immature Granulocyte Percent A 0.2 % (0-0.5); Lymphocytes Absolute Auto 2.89 K/mm3 (0.9-3.2); Mean Corpuscular HGB Conc 33.0 g/dl (32-36); Mean Corpuscular Hemoglobin 32.1 pg (26-34); Mean Corpuscular Volume 97.3 fl (80-100); Nucleated Red Blood Cells Absolute Auto 0.000 K/mm3 (0.0-0.012); Nucleated Red Blood Cells Perc 0.0 % (0.0-0.2); Platelet Count Result 216 k/mm3 (150-375); Red Blood Count 4.77 M/mm3 (4.2-5.4); White Blood Count 5.2 K/mm3 (4.5-10.0)
[2025-03-27 13:23] LABS: Alanine Aminotransferase 29 U/L (6-35); Albumin Level 4.5 g/dL (3.5-5.1); Alkaline Phosphatase 72 U/L (38-126); Anion Gap 7 mmol/L (4-12); Aspartate Amino Transferase 40 U/L (14-36); Bilirubin,Total 0.6 mg/dL (0.2-1.3); Blood Urea Nitrogen 13 mg/dL (7-17); Calcium 9.1 mg/dL (8.4-10.2); Carbon Dioxide 28 mmol/L (22-30); Chloride 98 mmol/L (98-107); Cholesterol 269 mg/dL (0-200); Estimated Glomerular Filt Rate > 60; Glucose 73 mg/dL (65-110); HDL Direct 81 mg/dL; Potassium 4.2 mmol/L (3.4-5.0); Sodium 133 mmol/L (137-145); Total Protein 7.7 g/dL (6.3-8.2); Triglycerides 68 mg/dL (<150)
== END 2025-03-27 09:16 | disposition home or self-care (01) ==
LOC: ANHGOSHLAB 09:16
PROVIDERS: PCP Internal Medicine; Visit Provider Nurse Practitioner
DX: E78.2 Mixed hyperlipidemia (principal); E55.9 Vitamin D deficiency, unspecified; Z13.29 Encounter for screening for other suspected endocrine disorder
CPT/HCPCS: 36415; 80053; 80061; 82306; 85025

== ENCOUNTER 2025-04-01 10:02 | Outpatient (CLI) | payer OTHER, SELFPAY ==
--- NOTE | ~2025-04-01 | MM_ITS ---
EXAMINATION: MM screening colette BI w evan HISTORY: Screening TECHNIQUE: Craniocaudal and mediolateral oblique 3-D tomosynthesis images were obtained and synthetic 2-D images were generated. CAD analysis was submitted and interpreted. COMPARISON: Comparison to multiple prior studies sequentially, with oldest reviewed study dated 03/25/2021. BREAST PARENCHYMAL COMPOSITION: Dense: The breasts are heterogeneously dense, which may obscure small masses FINDINGS: There are developing asymmetries in the upper aspect of the left breast on MLO view, middle third, obscured by fibroglandular content. The right breast is stable without evidence for malignancy. IMPRESSION: 1. Developing asymmetries of the left breast. 2. Additional mammographic views and possible breast ultrasound are recommended. BI-RADS Category 0: Incomplete: Needs additional imaging evaluation. Reviewed, dictated and finalized at location B. IMPRESSION: 1. Developing asymmetries of the left breast. 2. Additional mammographic views and possible breast ultrasound are recommended . BI-RADS Category 0: Incomplete: Needs additional imaging evaluation.
--- OUTSIDE RECORDS SUMMARY | 2025-04-01 11:13 | XMS_ITS | Patient Health Record ---
Author Organization [facility] Address [address] [place] [address] Support Name Relationship Address Phone PATRICE VALDEZ Emergency Contact Unknown Unavail able JOSSELYN VALDE[place] Guarantor Unknown [phone] Reason For Referral No Information Medications Medication [...] Insured Coverage Start Date Coverage End Date [facility] [address] [address] [place] [address] [id number] PATRICE VALDEZ Spouse - patient is the spouse of the insured Medical (General) History Surgical History Surgery Date(Month/Year) Tonsilectomy/adenoids 06/04/1968 Other 02/02/2009
--- OUTSIDE RECORDS SUMMARY | 2025-04-01 11:13 | XMS_ITS | Clinical Summary ---
Author Organization [facility] [address] Address [address] [place] [address] Care Team Providers Care Medical Coding Specialist Name Role Phone Yareli Brumfield MD Primary Care Provider [phone] Allergies Active Allergy Reactions Criticality Noted Date Comments Codeine Dizziness,Vomiting Low 05/23/2021 Iodine Other (See comments) Low 05/23/2021 Blzyoff-Hpp-Hmc Reductase Inhibitors Other (See comments) Low 05/23/2021 [...] on file Legal Sex Female 8:53 AM CREAM DIPPER Gender Identity Not on file Sexual Orientation Not on file Obstetrics History Last Filed Vital Signs Vital Sign Reading Time Taken Comments Blood Pressure 116/58 05/23/2021 12:45 PM CREAM DIPPER Pulse 60 05/23/2021 12:45 PM CREAM DIPPER Temperature - - Respiratory Rate - - Oxygen Saturation 97% 05/23/2021 12:45 PM CREAM DIPPER Inhaled Oxygen Concentration - - Weight 57.2 kg (126 lb 1.6 oz) 05/23/2021 12:45 PM CREAM DIPPER Height 161.3 cm (5' 3.5) 05/23/2021 12:45 PM CS T Body Mass Index 21.99 05/23/2021 12:45 PM CREAM DIPPER Plan of Treatment Not on file Insurance [employer] P[employer] Care Teams Medical Coding Specialist Relationship Specialty Start Date End Date Yareli Brumfield MD [address] [place] [address] [place] [address] PCP - General Family Medicine 05/02/21
--- OUTSIDE RECORDS SUMMARY | 2025-04-01 11:13 | XMS_ITS | Data Portability ---
Author Organization [place] [facility], Main Office Address [address] [place] [address] Assessment No assessment recorded. Plan of Treatment Reminders Order Date Submit Date Provider Last Modified By Organization Details Last Modified Time Details Appointments None recorded . Lab lipid panel, serum 023 08/25/19 atolliver 11 [employer], [address], [place], [address], 3 09:38:26 CMP, serum or plasma 023 08/25/19 atolliver 11 [employer] [facility], [address], [place], [address], 3 09:38:26 Referral None recorded . Procedures [...] modera te - 1 score Not Available [facility] (Lab) [address] [place], [address], 12/15/2021 06:10:07 12/14/19 22 12/15/2021 BACTE RIAL VAGIN OSIS, CHRISTIANO bvab 2 low - 0 score Not Available [facility] (Lab) [address] [place], [address], 12/15/2021 06:10:07 12/14/19 22 12/15/2021 BACTE RIAL [...] =G - Labco rp Shadia eston [address] [place] , [place] [address] Lab Direc tor: Earle galvan MD, Phone : [phone] Not Available [facility] (Lab) [address] [place], [address], 12/15/2021 06:10:07 07/28/19 23 07/28/2022 H. pylor ieb rstic k H PYLORI neg Not Available [facility] [address] , [address], [place], [address], 07/28/2022 12:20:22 08/31/19 23 09/01/2022 LIPID PANEL (REFL ) cholesterol, total 223 mg/dL <200 high Not Available [facility] [address], [address], 09/01/2022 10:52:28 08/31/19 23 09/01/2022 LIPID PANEL (REFL ) HDL cholesterol 79 mg/dL > or = 50 normal Not Available [facility] [address] [place] [address], [address], 09/01/2022 10:52:28 08/31/19 23 09/01/2022 LIPID PANEL (REFL ) triglyceride s 71 mg/dL <150 normal Not Available [address], [address], 09/01/2022 10:52:28 08/31/19 23 09/01/2022 LIPID PANEL [...] 9): 2061- 2068 (http ://ed ucati on.Qu estSimulScribe. com/f aq/FA Q164) Not Available [address], [address], 09/01/2022 10:52:28 08/31/19 23 09/01/2022 LIPID PANEL (REFL ) chol/HDLC ratio 2.8 (calc ) <5.0 normal Not Available [place] [address] [place], [address], 09/01/2022 10:52:28 08/31/19 23 09/01/2022 LIPID PANEL (REFL ) non HDL cholesterol 144 mg/dL _(d[place] c) <130 high For patie nts with diabe angelo plus 1 major ASCVD risk facto r, treat ing to a non-H DL-C goal of <100 mg/dL (LDL- C of <70 mg/dL ) is consi dered a thera peuti c optio n. Not Available [facility] [address], [address], 09/01/2022 10:52:28 08/31/19 23 09/01/2022 SPECI MEN [...] ct with red cells . Not Available [facility] [address], [address], 09/01/2022 10:52:29 08/31/19 23 09/01/2022 COMPR EHENS GERTRUDE METAB OLIC PANEL (REFL ) glucose 83 mg/dL 65-99 normal Fasti ng refer ence inter mayur Not Available [facility] [address], [address], 09/01/2022 10:52:30 08/31/19 23 09/01/2022 COMPR EHENS GERTRUDE METAB OLIC PANEL (REFL ) urea nitrogen (BUN) 14 mg/dL 7-25 normal Not Available [facility] [address], [address], 09/01/2022 10:52:30 08/31/19 23 09/01/2022 COMPR EHENS GERTRUDE METAB OLIC PANEL (REFL ) creatinine 0.90 mg/dL 0.50-1 .05 normal Not Available [address], [address], 09/01/2022 10:52:30 08/31/19 23 09/01/2022 COMPR EHENS [...] kdoqi /gfr% 5Fcal culat or Not Available [address], [address], 09/01/2022 10:52:30 08/31/19 23 09/01/2022 COMPR EHENS GERTRUDE METAB OLIC PANEL (REFL ) BUN/creatini ne ratio NOT APPLIC ABLE (calc ) 6-22 Not Available [address], [address], 09/01/2022 10:52:30 08/31/19 23 09/01/2022 COMPR EHENS GERTRUDE METAB OLIC PANEL (REFL ) sodium 137 mmol/ L 135-14 6 normal Not Available [address], [address], 09/01/2022 10:52:30 08/31/19 23 09/01/2022 COMPR EHENS GERTRUDE METAB OLIC PANEL (REFL ) potassium 4.4 mmol/ L 3.5-5. 3 normal Not Available [address], [address], 09/01/2022 10:52:30 08/31/19 23 09/01/2022 COMPR EHENS GERTRUDE METAB OLIC PANEL (REFL ) chloride 102 mmol/ L 98-110 normal Not Available [address], [address], 09/01/2022 10:52:30 08/31/19 23 09/01/2022 COMPR EHENS GERTRUDE METAB OLIC PANEL (REFL ) carbon dioxide 29 mmol/ L 20-32 normal Not Available [address], [address], 09/01/2022 10:52:30 08/31/19 23 09/01/2022 COMPR EHENS GERTRUDE METAB OLIC PANEL (REFL ) calcium 9.1 mg/dL 8.6-10 .4 normal Not Available [address], [address], 09/01/2022 10:52:30 08/31/19 23 09/01/2022 COMPR EHENS GERTRUDE METAB OLIC PANEL (REFL ) protein, total 6.6 g/dL 6.1-8. 1 normal Not Available [address], [address], 09/01/2022 10:52:30 08/31/19 23 09/01/2022 COMPR EHENS GERTRUDE METAB OLIC PANEL (REFL ) albumin 4.1 g/dL 3.6-5. 1 normal Not Available [address], [address], 09/01/2022 10:52:30 08/31/19 23 09/01/2022 COMPR EHENS GERTRUDE METAB OLIC PANEL (REFL ) globulin 2.5 g/dL_ (calc ) 1.9-3. 7 normal Not Available [address], [address], 09/01/2022 10:52:30 08/31/19 23 09/01/2022 COMPR EHENS GERTRUDE METAB OLIC PANEL (REFL ) albumin/glob ulin ratio 1.6 (calc ) 1.0-2. 5 normal Not Available [address], [address], 09/01/2022 10:52:30 08/31/19 23 09/01/2022 COMPR EHENS GERTRUDE METAB OLIC PANEL (REFL ) bilirubin, total 0.6 mg/dL 0.2-1. 2 normal Not Available [address], [address], 09/01/2022 10:52:30 08/31/19 23 09/01/2022 COMPR EHENS GERTRUDE METAB OLIC PANEL (REFL ) alkaline phosphatase 71 U/L 37-153 normal Not Available [facility] [address], [place], [address], 09/01/2022 10:52:30 08/31/19 23 09/01/2022 COMPR EHENS GERTRUDE METAB OLIC PANEL (REFL ) AST 22 U/L 10-35 normal Not Available [facility] [address], [place], [address], 09/01/2022 10:52:30 08/31/19 23 09/01/2022 COMPR EHENS GERTRUDE METAB OLIC PANEL (REFL ) ALT 29 U/L 6-29 normal Not Available [facility] [address] , [place], [address], 09/01/2022 10:52:30 09/21/19 23 09/19/2022 MAMMO , scree sue, bilat eral No observ ation record ed. [address] [facility] [address], [place], [address], 09/20/2022 14:14:37 Result Notes None recorded. Problems Name Problem SNOMED Code Status Onset Date Resolution Date Notes Provider Name and Address Organization Details Recorded Time Gluten sensitivity 187350532 Active 2020 Not Available [facility] 3 22:24:08 Hyperlipidemi a 12057843 Active 2020 Not Available [facility] 3 22:24:08 Acid reflux 771940603 Active 2020 Not Available [facility] 3 22:24:08 Skin lesion 23283414 Active 2021 Not Available [facility] 3 22:24:08 Abdominal pain 93307610 Active 2022 Yareli Brumfield MD [address] [place] [address], [address] , [facility] [employer] [facility] 3 14:32:39 Problem Notes None recorded. Procedures Surgical History Date Name Laterality Status Provider Name and Address Organization Details Recorded Time Disc replacement surgery completed Not Available [facility] 08/02/2022 22:23:17 Imaging Results None recorded. Procedure Notes None recorded. Medical Equipment None Reported. Allergies Allergen ID Allergen Name Allergen Category Reaction Reaction Severity Criticality Documentation Date Start Date Code Code System Note Provider Name and Address Organization Details Recorded Time 28120 iodine medicatio n Not available Not available Not available 08/02/2022 5933 RxNorm topic al iodin e Not Available [facility] 3 22:24:51 65038 codeine medicatio n dizziness vomiting Not available Not available Not available 08/02/2022 2670 RxNorm Not Available [facility] 3 22:24:51 Medications Name Sig Start Date [...] % 99 % 56 /min 98.5 [degF] 41788.3 6 g 120/80 mm[Hg] Not Available [facility] 3 22:23:46 Date Recorded Body mass index (BMI) Body height Oxygen saturation Oxygen saturation in Arterial blood by Pulse oximetry Heart rate Body temperature Body weight Systolic And Diastolic Provider Name and Address Organization Details Last Updated DateTime 3 21.6 kg/m2 161.29 cm 94 % 94 % 65 /min 98.1 [degF] 84767.4 5 g 122/80 mm[Hg] Not Available [facility] 3 22:23:46 Date Recorded Body height Body mass index (BMI) Body weight Body temperature Heart rate Oxygen saturation Oxygen saturation in Arterial blood by Pulse oximetry Systolic And Diastolic Provider Name and Address Organization Details Last Updated DateTime 3 161.29 cm 21.8 kg/m2 85397.0 5 g 97 [degF] 66 /min 98 % 98 % 102/68 mm[Hg] NAZANIN Brooke [place] [facility] 3 14:18:47 Date Recorded Body mass index (BMI) Body height Oxygen saturation Oxygen saturation in Arterial blood by Pulse oximetry Heart rate Body temperature Body weight Systolic And Diastolic Provider Name and Address Organization Details Last Updated DateTime 2 21.6 kg/m2 161.29 cm 99 % 99 % 62 /min 99.5 [degF] 79283.4 5 g 112/80 mm[Hg] Not Available [facility] 3 22:23:46 Date Recorded Body mass index (BMI) Body height Oxygen saturation Oxygen saturation in Arterial blood by Pulse oximetry Heart rate Body temperature Body weight Systolic And Diastolic Provider Name and Address Organization Details Last Updated DateTime 2 21.1 kg/m2 161.29 cm 97 % 97 % 66 /min 98.9 [degF] 64613.6 8 g 124/74 mm[Hg] Not Available [facility] 3 22:23:46 Social History Question Answer Notes LastModified by [employer] Details LastModified Time Tobacco Smoking Status Never Smoker Madison fernandez [place] [facility] 08/24/2022 14:13:33 In The 14 Days Before Symptom Onset, Have You Had Close Contact With A Laboratory-confirm ed COVID-19 While That Case Was Ill? No [email or web address] Information n ot available 08/24/2022 In The 14 Days Before Symptom Onset, Have You Had Close Contact With A Person Who Is Under Investigation For COVID-19 While That Person Was Ill? No [email or web address] Information not available 08/24/2022 What Type Of Diet Are You Following? GLUTENFREE [id number] Information not available 08/02/2022 Have You Recently Traveled Abroad? No [email or web address] Information not available 08/24/2022 Sex: Female Functional Status Question Answer Note LastModified by [employer] Details LastModified Time What is your exercise level? Moderate [id number] Information not available 08/02/2022 Mental Status None recorded. Family History Relationship Description Onset Age of this Age Resolved Age Notes LastModified by Organization Details LastModified Time Father Hypertensive disorder [id number] Not available 08/02/2022 22:23:19 Father Franklin's esophagus [email or web address] Not available 08/24 14:13:33 Father Leukemia [email or web address] Not availab le 08/24/2022 14:13:33 Mother Hypertensive disorder [id number] Not available 08/02/2022 22:23:19 Mother Heart disease [id number] Not available 08/02/2022 22:23:19 Mother Family history of stroke [email or web address] Not available 08/24 14:13:33 Mother Crohn's disease [email or web address] Not available 08/24 14:13:33 Medical History No medical history recorded. Gynecological HistoryNo gynecological history recorded. Obstetrics History GPAL:G 0 P 0 0 0 0 Immunizations Vaccine Type Date Status Note Provider Nam e and Address Organization Details Recorded Time Influenza, split virus, quadrivalent, preservative 0 completed Not Available [facility] 08/02/2022 22:24:49 Influenza, split virus, quadrivalent, PF 1 completed Not Available [facility] 08/02/2022 22:24:49 Past Encounters Encounter ID Performer Location Encounter Start Date Encounter Closed Date Diagnosis/Indication Diagnosis SNOMED-CT Code Diagnosis ICD10 Code Diagnosis IMO Codes Diagnosis Note [id number] Yareli Brumfield MD [facility] [place] [address] [place] [address] 01/25/2021 00:00:00 01/26/2021 05:31:29 [id number] Yareli Brumfield MD [facility] [place] [address] [place] [address] 02/24/2021 00:00:00 02/24/2021 20:48:57 [id number] Yareli Brumfield MD [facility] [place] [address] [place] [address] 04/27/2021 00:00:00 04/27/2021 19:46:24 [id number] Yareli Brumfield MD [facility] [place] [address] [place] [address] 07/26/2021 00:00:00 07/27/2021 06:19:37 [id number] Yareli Brumfield MD [facility] [place] [address] [place] [address] 09/13/2021 00:00:00 09/13/2021 19:14:39 [id number] Yareli Brumfield MD [facility] [place] [address] [place] [address] 12/12/2021 00:00:00 12/12/2021 20:35:14 [id number] Yareli Brumfield MD [facility] [place] [address] [place] [address] 07/28/2022 00:00:00 07/28/2022 14:21:24 [id number] Yareli Brumfield MD [facility] [address] [facility] [place] [address] 08/24/2022 14:05:29 08/24/2022 14:38:46 Abdominal pain 71985585 R10.9 Continue diet and use famotidine Hyperlipidemia 88923482 E78.5 Health Concerns Section Related Observation LastModified by Organization Detai ls LastModified Time None Recorded Concern Status LastModified by Organization Details LastModified Time None Recorded Advance Directives Directive None Recorded Payers Insurance Date Sequence Insurance Name Policy Number Policy Camacho Covered Member ID Camacho Member ID Guarantor Name 08/21/2022 1 [facility] [employer] - GE - DOS PRIOR TO 2024 (O) [id number] Patrice Sy [id number] Marlyn Sy Notes Date Note Type Note [...] a Fad Mopp diet. Yareli Brumfield MD [facility] [address], [place], [address], [facility] 08/25/2022 06:29:01 OBGyn Episode No OBEpisode recorded.
== END 2025-04-01 10:03 | disposition home or self-care (01) ==
LOC: ANHFOHIMG 10:03
PROVIDERS: PCP Internal Medicine; Visit Provider Student in an Organized Health Care Education/Training Program
DX: Z12.31 Encounter for screening mammogram for malignant neoplasm of breast (principal); R92.8 Other abnormal and inconclusive findings on diagnostic imaging of breast
CPT/HCPCS: 77063; 77067

== ENCOUNTER 2025-05-15 10:54 | Outpatient (CLI) | payer OTHER, SELFPAY ==
--- NOTE | ~2025-05-15 | MM_ITS ---
EXAMINATION: MM diagnostic colette LT w evan HISTORY: Additional imaging TECHNIQUE: Craniocaudal and mediolateral oblique 3-D tomosynthesis images were obtained and synthetic 2-D images were generated. CAD analysis was submitted and interpreted. COMPARISON: April 01. Other studies from 2023, 2022, and 2021. BREAST PARENCHYMAL COMPOSITION: Dense: The breasts are heterogeneously dense FINDINGS: The findings questioned on the screening study do not persist with additional imaging. This is thought to have related to compression artifact. No suspicious masses are seen. There are no suspicious calcifications. No unexplained architectural distortion is seen. There are no skin or nipple abnormalities identified. There is no adenopathy seen on the images submitted. IMPRESSION: No mammographic evidence to suggest malignancy is seen. The patient may return to screening mammography as per ACR guidelines. BI-RADS 1 - Negative. Reviewed, dictated and finalized at location C. NT ACQUISITION PROGRAM MANAGER
== END 2025-05-15 10:55 | disposition home or self-care (01) ==
LOC: ANHFOHIMG 10:55
PROVIDERS: PCP Internal Medicine; Visit Provider Student in an Organized Health Care Education/Training Program
DX: N64.89 Other specified disorders of breast (principal)
CPT/HCPCS: 77061; 77065; G0279